=== PATIENT | male | born 1975 | race Caucasian/White ===

== ENCOUNTER 2022-04-27 04:08 | Outpatient (CLI) | payer OTHER | END 2022-04-27 13:33 | disposition home or self-care (01) | LOC: LAB 04:08 | PROVIDERS: ATTEND Obstetrics & Gynecology | DX: Z20.818 Contact with and (suspected) exposure to other bacterial communicable diseases (principal); Z20.828 Contact with and (suspected) exposure to other viral communicable diseases ==

== ENCOUNTER 2022-04-29 09:45 | Outpatient (CLI) | payer OTHER | END 2022-04-29 09:55 | disposition home or self-care (01) | LOC: PPH VACUNA 09:45 | PROVIDERS: ATTEND Emergency Medicine Pediatric Emergency Medicine | DX: Z23 Encounter for immunization (principal) ==